=== PATIENT | female | born 1980 | race Asian ===

== ENCOUNTER 2024-05-19 14:15 | Outpatient (CLI) | payer SELFPAY ==
--- NOTE | 2024-05-19 17:36 | XRAY Report ---
PROCEDURE: Chest 2V INDICATIONS: TUBERCULOSIS EXPOSURE TECHNIQUE: 2 views of the chest were acquired. COMPARISON: None. FINDINGS: Surgical changes and devices: None. Lungs and pleura: Scattered areas bilaterally of perihilar wall thickening. No dense consolidations, masses, pleural effusions, or pneumothorax. Mediastinum: Mediastinal contours appear normal. Heart size is normal. Bones and chest wall: No suspicious bony lesions. Overlying soft tissues appear unremarkable. IMPRESSION: Changes suggestive of bronchitis. No suspicious mass or consolidation. Reviewed by: Yadi Reina MD on 05/19/2024 5:34 PM PDT Approved by: Yadi Reina MD on 05/19/2024 5:34 PM PDT Station ID: [id number]
== END 2024-05-19 14:30 | disposition home or self-care (01) ==
LOC: DI.N 14:15
PROVIDERS: ATTEND Physician Assistant Medical
DX: Z20.1 Contact with and (suspected) exposure to tuberculosis (principal)